=== PATIENT | female | born 1990 | race Two or more races ===

== ENCOUNTER 2017-05-08 14:02 | Emergency (ER) | payer OTHER ==
[~2017-05-08] VITALS: Ht 162.6 cm; Wt 62.4 kg
[2017-05-08 14:06] VITALS: BP 110/76
[2017-05-08] MEDS ORDERED: IBUPROFEN 600 MG TAB As Ordered ONE (15:07)
[2017-05-08] MEDS ORDERED: IBUPROFEN 600 MG TAB PO ONE (15:15)
[2017-05-08] MEDS ORDERED: CYCL10TA PO (15:30)
[2017-05-08] MEDS ORDERED: IBUP-1022 PO (15:30)
--- NOTE | 2017-05-08 16:08 | REP ---
REASON: Pain in the neck after trauma. Vertebral body height alignment is within normal limits. The disc spaces are symmetric and well preserved. The facet joints are well aligned bilaterally. There is no abnormal paraspinal soft tissue swelling. There is no evidence of an acute cervical spine fracture. IMPRESSION: C-spine CT within normal limits. Signed by Balaji Salazar DO 05/08/2017 04:41 P
== END 2017-05-08 15:40 | disposition home or self-care (01) ==
LOC: M ED 15:36
DX: S13.4XXA Sprain of ligaments of cervical spine, initial encounter (principal); V43.52XA Car driver injured in collision with other type car in traffic accident, initial encounter; Y92.9 Unspecified place or not applicable; Y93.9 Activity, unspecified; Y99.9 Unspecified external cause status

== ENCOUNTER 2018-02-13 16:02 | Emergency (ER) | payer OTHER | END 2018-02-13 17:03 | disposition home or self-care (01) | LOC: M ED 16:02 | DX: J02.0 Streptococcal pharyngitis (principal) | CPT/HCPCS: 99282 ==

== ENCOUNTER 2018-02-14 08:36 | Emergency (ER) | payer OTHER | END 2018-02-14 09:22 | disposition home or self-care (01) | LOC: M ED 08:36 | DX: H10.9 Unspecified conjunctivitis (principal) | CPT/HCPCS: 99282 ==